=== PATIENT | male | born 1945 | race Caucasian/White ===

== ENCOUNTER 2017-09-26 13:54 | Inpatient (IN) | payer MEDICARE ==
[~2017-09-26] VITALS: Ht 180.3 cm; Wt 81.2 kg
[2017-09-26] MEDS ORDERED: LORA1TAB PO (14:35)
[2017-09-26] MEDS ORDERED: OLAN10TA3 PO (14:35)
[2017-09-26] MEDS ORDERED: OLAN5TAB3 PO (14:35)
[2017-09-26] MEDS ORDERED: DIVA-78 PO (14:35)
[2017-09-26] MEDS ORDERED: POLY10DR3 EACHEYE (14:35)
[2017-09-26] MEDS ORDERED: ONDA4TAB10 PO (14:35)
[2017-09-26 16:48] VITALS: BP 113/78
[2017-09-26] MEDS ORDERED: MAGNESIUM HYDROXIDE 30 ML LIQUID UDC PO PRN (17:00)
[2017-09-26] MEDS ORDERED: TEMAZEPAM 7.5 MG CAPSULE PO PRN (17:00)
[2017-09-26] MEDS ORDERED: MAG HYDROX/AL HYDROX/SIMETH 30 ML LIQUID UDC PO PRN (17:00)
[2017-09-26 19:26] VITALS: BP 108/72
[2017-09-26] MEDS ORDERED: ONDANSETRON HCL 4 MG TABLET PO SCH (21:45)
[2017-09-26] MEDS: LORAZEPAM 0.5 MG TABLET PO PRN (21:51)
[2017-09-27] MEDS ORDERED: ZOLPIDEM 5 MG TABLET PO PRN
[2017-09-27] MEDS: LORAZEPAM 0.5 MG TABLET PO PRN ×3 (02:19→13:08)
[2017-09-27] MEDS ORDERED: ONDANSETRON HCL 4 MG TABLET PO PRN (07:55)
[2017-09-27 08:00] VITALS: BP 116/81
[2017-09-27] MEDS: QUETIAPINE FUMARATE 25 MG TABLET PO SCH (10:31)
[2017-09-27] MEDS: DIVALPROEX 500 MG TABLET.DR PO SCH ×2 (10:31→16:43)
[2017-09-27] MEDS: ACETAMINOPHEN 325 MG TABLET PO PRN (14:28)
[2017-09-27] MEDS: LORAZEPAM 1 MG TABLET PO PRN (14:28)
[2017-09-27 15:50] VITALS: BP 118/80
[2017-09-27 19:30] VITALS: BP 101/67
[2017-09-27] MEDS ORDERED: QUETIAPINE FUMARATE 25 MG TABLET PO SCH (21:00)
[2017-09-28] MEDS: LORAZEPAM 1 MG TABLET PO PRN ×2 (05:30→11:05)
[2017-09-28] MEDS: ACETAMINOPHEN 325 MG TABLET PO PRN ×2 (05:30→11:05)
[2017-09-28 07:30] VITALS: BP 115/77
[2017-09-28] MEDS: DIVALPROEX 500 MG TABLET.DR PO SCH ×2 (09:15→17:13)
[2017-09-28] MEDS: ESCITALOPRAM OXALATE 10 MG TABLET PO SCH (09:15)
[2017-09-28] MEDS: QUETIAPINE FUMARATE 25 MG TABLET PO SCH ×2 (09:16→14:33)
[2017-09-28 16:13] VITALS: BP 107/74
[2017-09-28 20:22] VITALS: BP 112/81
[2017-09-28] MEDS ORDERED: QUETIAPINE FUMARATE 25 MG TABLET PO SCH (21:00)
[2017-09-29 07:30] VITALS: BP 114/79
[2017-09-29] MEDS: QUETIAPINE FUMARATE 25 MG TABLET PO SCH ×2 (08:56→13:04)
[2017-09-29] MEDS: DIVALPROEX 500 MG TABLET.DR PO SCH ×2 (08:56→17:09)
[2017-09-29] MEDS: ESCITALOPRAM OXALATE 10 MG TABLET PO SCH (08:56)
[2017-09-29 15:20] VITALS: BP 103/67
[2017-09-29] MEDS: QUETIAPINE FUMARATE 100 MG TABLET PO SCH (20:11)
[2017-09-29 20:33] VITALS: BP 110/61
[2017-09-29] MEDS ORDERED: QUETIAPINE FUMARATE 25 MG TABLET PO SCH (21:00)
[2017-09-30 07:30] VITALS: BP 108/72
[2017-09-30] MEDS: DIVALPROEX 500 MG TABLET.DR PO SCH ×2 (10:21→18:05)
[2017-09-30] MEDS: QUETIAPINE FUMARATE 25 MG TABLET PO SCH ×2 (10:21→18:06)
[2017-09-30] MEDS: ESCITALOPRAM OXALATE 10 MG TABLET PO SCH (10:21)
[2017-09-30 15:54] VITALS: BP 108/67
[2017-09-30 20:57] VITALS: BP 106/65
[2017-09-30] MEDS: QUETIAPINE FUMARATE 100 MG TABLET PO SCH (21:50)
[2017-10-01 07:30] VITALS: BP 140/80
[2017-10-01] MEDS: DIVALPROEX 500 MG TABLET.DR PO SCH ×2 (09:07→16:47)
[2017-10-01] MEDS: ESCITALOPRAM OXALATE 10 MG TABLET PO SCH (09:07)
[2017-10-01] MEDS: QUETIAPINE FUMARATE 25 MG TABLET PO SCH ×2 (09:08→16:47)
[2017-10-01 15:35] VITALS: BP 106/64
[2017-10-01 20:06] VITALS: BP 111/63
[2017-10-01] MEDS: QUETIAPINE FUMARATE 100 MG TABLET PO SCH (21:18)
[2017-10-02 07:30] VITALS: BP 107/64
[2017-10-02] MEDS: QUETIAPINE FUMARATE 25 MG TABLET PO SCH ×2 (08:06→16:39)
[2017-10-02] MEDS: DIVALPROEX 500 MG TABLET.DR PO SCH ×2 (08:06→16:39)
[2017-10-02] MEDS: ESCITALOPRAM OXALATE 10 MG TABLET PO SCH (08:06)
[2017-10-02 15:46] VITALS: BP 106/66
[2017-10-02] MEDS: QUETIAPINE FUMARATE 100 MG TABLET PO SCH (20:09)
[2017-10-02 20:17] VITALS: BP 110/63
[2017-10-03 07:30] VITALS: BP 107/72
[2017-10-03] MEDS: ESCITALOPRAM OXALATE 10 MG TABLET PO SCH (08:54)
[2017-10-03] MEDS: QUETIAPINE FUMARATE 25 MG TABLET PO SCH ×2 (08:54→16:50)
[2017-10-03] MEDS: DIVALPROEX 500 MG TABLET.DR PO SCH ×2 (08:54→16:50)
[2017-10-03 17:14] VITALS: BP 104/68
[2017-10-03 19:58] VITALS: BP 111/69
[2017-10-03] MEDS: QUETIAPINE FUMARATE 100 MG TABLET PO SCH (21:03)
[2017-10-04 07:30] VITALS: BP 106/65
[2017-10-04] MEDS: DIVALPROEX 500 MG TABLET.DR PO SCH ×2 (08:14→16:10)
[2017-10-04] MEDS: ESCITALOPRAM OXALATE 10 MG TABLET PO SCH (08:14)
[2017-10-04] MEDS: QUETIAPINE FUMARATE 25 MG TABLET PO SCH ×2 (08:14→16:11)
[2017-10-04] MEDS: ACETAMINOPHEN 325 MG TABLET PO PRN (14:37)
[2017-10-04 15:47] VITALS: BP 101/63
[2017-10-04 20:41] VITALS: BP 105/62
[2017-10-04 21:00] VITALS: BP 119/72
[2017-10-04] MEDS: QUETIAPINE FUMARATE 100 MG TABLET PO SCH (21:17)
[2017-10-05] MEDS: LORAZEPAM 1 MG TABLET PO PRN (01:58)
[2017-10-05 07:30] VITALS: BP 104/72
[2017-10-05] MEDS: ESCITALOPRAM OXALATE 10 MG TABLET PO SCH (08:13)
[2017-10-05] MEDS: QUETIAPINE FUMARATE 25 MG TABLET PO SCH (08:13)
[2017-10-05] MEDS: DIVALPROEX 500 MG TABLET.DR PO SCH (08:13)
== END 2017-10-05 13:15 | disposition home or self-care (01) | DRG 885 ==
LOC: ER 13:57 → GPSOV 16:02 → GPS 09-27 18:38
PROVIDERS: ADMIT Psychiatry & Neurology Psychiatry; ATTEND Psychiatry & Neurology Psychiatry
DX: F31.64 Bipolar disorder, current episode mixed, severe, with psychotic features (principal); F23 Brief psychotic disorder; R45.851 Suicidal ideations; N40.0 Benign prostatic hyperplasia without lower urinary tract symptoms; E78.5 Hyperlipidemia, unspecified; F41.9 Anxiety disorder, unspecified; G89.29 Other chronic pain; Z79.899 Other long term (current) drug therapy; Z85.820 Personal history of malignant melanoma of skin; Z66 Do not resuscitate; M48.00 Spinal stenosis, site unspecified; Z73.6 Limitation of activities due to disability; Z85.79 Personal history of other malignant neoplasms of lymphoid, hematopoietic and related tissues
CPT/HCPCS: 36415; 80164; 93005; A4663